=== PATIENT | male | born 1975 | race Caucasian/White ===

== ENCOUNTER 2019-05-13 11:25 | Emergency (ER) | payer MEDICAID, SELFPAY ==
[2019-05-13] VITALS (9 sets, daily range): BP systolic 106–130; BP diastolic 74–75; PULSE 40–53; RESP 11–18; TEMP 36.5; O2SAT 97–100
--- NOTE | 2019-05-13 11:37 | DI.RAD_ITS ---
EXAM: XR ANKLE LT COMPLETE AND RT ANKLE INDICATION: fall from height. COMPARISON: LEFT ANKLE COMPLETE from 03/24/2012 XR ANKLE RT COMPLETE from 05/13/2019 TECHNIQUE: 2D digital imaging was performed. FINDINGS: Five views of the left ankle and three views of the right ankle were obtained. On the right, the ankle mortise appears well maintained and the tibia, fibula and talus appear intact . There is a comminuted calcaneal fracture with moderate displacement. On the left, there is a markedly displaced, comminuted tibiofibular fracture which is a trimalleolar fracture. No talar or calcaneal fracture identified.
--- NOTE | 2019-05-13 11:37 | W.ED.GENAD ---
Discharge Plan Disposition Patient Disposition: [facility] Condition: Serious Discharge Details Chief Complaint: Trauma Clinical Impression: Calcaneal fracture, Closed tibia fracture Primary Care Provider: Jamaal Lazaro ED Provider: Jenifer Blevins Home Meds and New Rx's Prescriptions: No Action No Known Home Meds RF: 0 Discharge Data Discharge Date/Time-TO BE ENTERED AT DEPARTURE: 05/13/19 14:22 Medical Decision Making Patient is a 43-year-old otherwise healthy male presenting today with chief complaint of bilateral ankle pains. He reports a prior to arrival he was working on a slippery roof when he slipped and fell off falling approximately 2 stories. Reports that he landed directly onto his feet. Denies any pain in his heels, knees, hips, pelvis, abdomen, chest, neck or back. Did not strike his head, no loss of consciousness. Denies other injury the time of the incident. Immediately noted swelling and pain to the bilateral ankles. No previous ankle fractures. He has a history of sprain to the right. On exam, patient appears uncomfortable but stable. He has obvious deformities to the ankles. Small abrasion to the anterior aspect of the left knee but no pain with palpation about this area. No palpable head or skull fracture. No evidence of trauma. No hemotympanum, no bruising by the scalp. Full range of motion of the neck with no midline tenderness. No pain palpation of the chest, lungs are clear bilaterally. Normal cardiac exam. Patient is noted to bradycardic but this is typical for the patient. Abdomen is benign, no peritoneal findings or tenderness. No CVA tenderness. Pelvis is stable with AP and lateral compression. No pain with palpation about the thighs. No saddle paresthesias. Sensation is intact in the feet he is able to wiggle his toes. Good capillary refill and 2+ distal pulses bilateral lower extremities. We will manage the patient's pain, obtain radiographic images. I do not see evidence to suggest need for CT we will continue to keep patient on a monitor perform serial evaluations. HR rate of 44, he reports he is chronically bradycardic, was 50bpm in 2015. Preliminary x-rays reviewed by myself. Patient does have a complex right tibial fracture extending into the joint line as well as a left calcaneal fracture. Consulted with orthopedics who agreed to review the images. Spoke with Dr. Hernandez who advised patient to be transferred to local trauma center. FINDINGS: Five views of the left ankle and three views of the right ankle were obtained. On the right, the ankle mortise appears well maintained and the tibia, fibula and talus appear intact. There is a comminuted calcaneal fracture with moderate displacement. On the left, there is a markedly displaced, comminuted tibiofibular fracture which is a trimalleolar fracture. No talar or calcaneal fracture identified. Consulted with Dr. Tejeda at [facility] [place]. He advised obtaining chest and pelvis x-rays, placing the patient in a cervical spine collar and sending them to their facility for 2 further evaluate. Discussed this plan with the patient who is in agreement. Patient has had a total of 2mg dilaudid, 100mcg fentanyl. FINDINGS: The heart is not enlarged. The lungs are clear. No pneumothorax or pleural effusion. IMPRESSION: No evidence of acute process. FINDINGS: A single AP view of the pelvis was obtained and shows no evidence of fracture. Care was placed in cervical precautions at the request trauma and transfer to [facility] for further evaluation and intervention the patient's bilateral lower extremities. Patient left in a comfortable state. He was with a large amount of padding prior to his departure. HPI General Mode of arrival: wheelchair. Date/Time Provider Initiated Documentation: 05/13/19 11:37. Limitations to Documentation: no limitations. Information obtained by: patient and RN notes reviewed. History of Present Illness 43 year old M presents to the emergency department with the chief complaint of bilateral ankle pain, described as severe, with intensity rated at 10. Quality is described as aching, and is localized to the left, right and lower extremity. Patient reports no radiation. Patient started experiencing this minute(s) (30) and it has been constant. Immobilization improves symptom(s), Movement worsens symptoms . Patient notes rash (ecchymosis bilateral ankles); denies chest pain, cough, diaphoresis, fever/chills, headaches, loss of appetite, nausea/vomiting, seizure, shortness of breath and syncope. Patient did receive the following treatments prior to arrival, none Related Data Home Medications Medication Instructions Recorded Confirmed Unknown [No Known Home Meds] 05/13/19 05/13/19 Allergies Allergy/AdvReac Type Severity Reaction Status Date / Time No Known Allergies Allergy Unverified 02/18/15 13:17 General Stated Complaint: Trauma CARMEN: 2 Review of Systems Constitutional Constitutional: Reports as per HPI, Denies chills, Denies fatigue, Denies fever(s), Denies headache(s) and Denies weakness Eyes Eyes: Reports as per HPI, Denies blurry vision, Denies change in vision and Denies loss of vision ENT Ears, Nose, Mouth, and Throat: Denies abnormal hearing and Denies headache(s) Cardiovascular Cardiovascular: Reports as per HPI, Denies chest pain and Denies dyspnea Respiratory Respiratory: Reports as per HPI, Denies cough, Denies pain on inspiration, Denies pain with cough and Denies dyspnea Gastrointestinal Gastrointestinal: Reports as per HPI, Denies abdominal pain, Denies nausea and Denies vomiting Genitourinary Genitourinary: Reports as per HPI and Denies urinary incontinence Musculoskeletal Musculoskeletal: Reports as per HPI Integumentary/Breasts Skin/Breast: Reports as per HPI and Denies rash Neurologic Neurologic: Reports as per HPI, Denies abnormal hearing, Denies abnormal movements, Denies abnormal speech, Denies headache(s), Denies lack of coordination, Denies focal weakness, Denies loss of vision, Denies seizure-like activity, Denies paresthesias and Denies weakness Endocrine Endocrine: Denies fatigue [facility] Social History Smoking/Tobacco Use Status: Current every day Drug use: Never Substance use type: does not use Current gender identity: male Do you feel safe at home: Yes Do you feel safe in your relationship?: Yes Exam Const General: cooperative, healthy appearing, comfortable, no acute distress, well developed and well groomed Nutritional Appearance: average body habitus and well nourished Orientation: alert, awake and oriented x3 HENMT Head: normal to inspection, no palpable skull fracture, normocephalic and atraumatic Ears: hearing grossly normal bilaterally, external ears normal and TM's normal bilaterally General nose exam: external nose normal Mouth: oral mucosae normal, lip normal and tongue normal Throat: posterior oropharynx normal Eyes General: appearance normal, both eyes and all related structures Visual Stroud: normal visual stroud by confrontation Alignment and Position: alignment normal Periorbital: periorbital findings normal Eyelids: eyelids normal Conjunctivae: conjunctivae normal Pupils: PERRL EOM: EOM intact bilaterally Neck Neck: normal visual inspection, full ROM, no lymphadenopathy, no meningeal signs, trachea midline and supple Chest Chest: normal inspection of the chest, normal palpation of entire chest wall, no crepitus and no localized rib tenderness Resp Effort & Inspection: normal respiratory effort, able to speak in complete sentences and no respiratory distress Auscultation: clear to auscultation bilaterally, no rales, no rhonchi and no wheezes Cardio Rate: regular rate Rhythm: regular rhythm Heart Sounds: S1 normal and S2 normal GI Inspection: normal to inspection, no abdominal wall ecchymosis, no edema and non-distended Palpation: soft, no hepatosplenomegaly, not firm, no guarding, no pulsatile masses, not rigid and nontender Auscultation: normal bowel sounds Back/Spine/Pelvis Back: no CVA tenderness Cervical Spine: normal cervical lordosis and cervical ROM normal Thoracic/Lumbar Spine: thoracic and lumbar spine normal to inspection, thoraco-lumbar ROM normal, No thoraco-lumbar ROM limited, No thoraco-lumbar spasm and No thoracic spinal tenderness Pelvis: no pain with anterior-posterior compression and no pain with lateral compression Skin General skin exam: ecchymosis (BLE) Neuro General: alert, awake, oriented x3, gait normal, tone normal and moves all extremities Cranial Nerves: CN's II-XI intact bilaterally Cognition: normal cognition Speech: speech normal Gait: normal gait Motor: muscle tone normal throughout and strength 5/5 throughout Sensory Exam: no sensory deficits noted (no saddle paresthesias) Extrem General: normal to inspection, full ROM, normal capillary refill, no pedal edema and no calf tenderness Right lower extremity: normal capillary refill; abnormal to inspection (deformity medial malleolus with ecchymosis extending into the headl) and no edema Left lower extremity: normal capillary refill (swelling to medial ankle); abnormal to inspection and no edema Psych Appearance: grossly normal and well kempt Mental Status: mental status grossly normal Speech and Movement: speech and movement normal Course Vital Signs Vital signs: Vital Signs Temperature 36.5 C 05/13/19 11:29 Pulse 44 L 05/13/19 11:29 Respiratory Rate 16 05/13/19 11:29 Blood Pressure 106/74 05/13/19 11:29 Pulse Oximetry 99 10/04/19 11:29 Temperature 36.5 C 05/13/19 11:29 Temperature Source Tympanic 05/13/19 11:29 Pulse 44 L 05/13/19 11:29 Respiratory Rate 16 05/13/19 11:29 Blood Pressure 106/74 05/13/19 11:29 Blood Pressure Position Supine 05/13/19 11:29 Pulse Oximetry 99 05/13/19 11:29 Oxygen Delivery Method Room Air 05/13/19 11:29 Oxygen Flow Rate 0 05/13/19 11:29 Pain Level 10 05/13/19 11:29 Procedures Orthopedic Splinting/Casting Injury #1: Side: left Lower Extremity Injury Location: ankle Lower Extremity Immobilizer: posterior splint Injury #2: Side: right Lower Extremity Injury Location: ankle Lower Extremity Immobilizer: posterior splint
[2019-05-13] MEDS: fentaNYL 100 MCG/2 ML VIAL IVP (11:47)
[2019-05-13] MEDS: Lactated Ringers 1,000 ML 1000 ML IV (11:47)
[2019-05-13] MEDS: HYDROmorphone 2 MG/ML VIAL 1 MG IVP ×2 (12:32→13:35)
--- NOTE | 2019-05-13 12:33 | NUR.NOTE ---
pr medicated as per mdo for pain Nursing Note:
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
--- NOTE | 2019-05-13 13:35 | NUR.NOTE ---
pa at bedside placing splints to ble Nursing Note:
== END 2019-05-13 14:22 | disposition short-term general hospital (02) ==
LOC: ER 13:10
PROVIDERS: Emergency Provider Physician Assistant; PCP Family Medicine
DX: S92.001A Unspecified fracture of right calcaneus, initial encounter for closed fracture (principal); S82.851A Displaced trimalleolar fracture of right lower leg, initial encounter for closed fracture; W13.2XXA Fall from, out of or through roof, initial encounter
CPT/HCPCS: 96361; 96374; 96375; 96376; 99285; 71046; 72170; 73610; 99284; J3010; L0172

== ENCOUNTER 2021-01-19 19:33 | Emergency (ER) | payer MEDICAID, SELFPAY ==
[2021-01-19] VITALS (13 sets, daily range): BP systolic 123–148; BP diastolic 59–105; PULSE 60–85; RESP 12–24; TEMP 36.7; O2SAT 94–100
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
[2021-01-19] MEDS: Ondansetron 4 MG/2 ML VIAL IVP (19:50)
[2021-01-19 19:52] LABS: Abs Immature Grans 0.01 10^3/uL (0.0-0.06); Absolute Basophil Count 0.04 10^3/uL (0.0-0.2); Absolute Eosinophil Count 0.08 10^3/uL (0.0-0.7); Absolute Lymphocyte Count 1.96 10^3/uL (1.2-3.4); Absolute Monocyte Count 0.42 10^3/uL (0.1-0.8); Absolute Neutrophil Count 5.64 10^3/uL (1.2-6.7); Basophils % 0.5; HCT 43.1 % (40.0-50.0); HGB 14.4 g/dL (13.5-17.5); Immature Grans % 0.1; MCH 29.9 pg (27.0-33.0); MCHC 33.4 % (32.0-36.0); MCV 89.6 fL (80-95); MPV 9.9 fL (8.0-11.0); Monocytes % 5.2; Neutrophils % 69.2; Nucleated RBC 0 %; Platelet Count 242 10^3/uL (130-400); RBC 4.81 10^6/uL (4.36-5.78); RDW-SD 39.8 fL; WBC 8.15 10^3/uL (4.4-10.8)
[2021-01-19] MEDS: Omnipaque 350 MG/ML 100 ML BTL IJ (19:53)
[2021-01-19] MEDS: Normal Saline - Diluent 50 ML VIAL IV (19:54)
[2021-01-19 20:05] LABS: ETHANOL BLOOD 49.7 mg/dL (<3); Lipase 55 U/L (73-393)
[2021-01-19 20:08] LABS: ALT 53 U/L (16-63); AST 33 U/L (15-37); Albumin 3.9 g/dL (3.4-5.0); Alkaline Phosphatase 61 U/L (46-116); Anion Gap 12.8 mmol/L (3-11); BUN 14 mg/dL (7-18); Bilirubin, Total 0.4 mg/dL (0.2-1.0); CO2 24.2 mmol/L (21.0-32.0); CREATININE 1.2 mg/dL (0.70-1.30); Calcium 8.8 mg/dL (8.5-10.1); Chloride 105 mmol/L (98-107); Glucose 109 mg/dL (74-106); Potassium 3.8 mmol/L (3.5-5.1); Sodium 142 mmol/L (136-145)
[2021-01-19] MEDS: Lidocaine/Epinephri/Tetracaine Topical Gel 3 ML TP (20:15)
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
[2021-01-19 20:38] LABS: Bilirubin Negative (Negative); Blood Negative (Negative); Clarity Clear (Clear); Glucose Negative (Negative); Ketones Negative (Negative); Leukocyte Esterase Negative (Negative); Nitrite Negative (Negative); Urobilinogen 0.2 EU/dL (Up TO 0.2); pH 5.5 (5-8)
[2021-01-19 20:58] LABS: *AMPHETAMINES SCREEN URINE Negative (Negative); *BARBITURATES SCREEN URINE Negative (Negative); *BENZODIAZEPINES SCREEN URINE Negative (Negative); Cannabinoids THC Positive (Negative); Cocaine Screen,Urine Negative (Negative); METHADONE URINE SCREEN Negative (Negative); OPIATES URINE SCREEN Negative (Negative)
[2021-01-19 21:23] LABS: Tricyclic Antidepressants Negative (Negative)
== END 2021-01-19 21:00 | disposition home or self-care (01) ==
LOC: ER 20:46
PROVIDERS: Emergency Provider Registered Nurse Emergency; PCP Family Medicine
DX: S01.01XA Laceration without foreign body of scalp, initial encounter (principal); S06.0X0A Concussion without loss of consciousness, initial encounter; V58.5XXA Driver of pick-up truck or van injured in noncollision transport accident in traffic accident, initial encounter; F10.10 Alcohol abuse, uncomplicated; Y90.2 Blood alcohol level of 40-59 mg/100 ml
CPT/HCPCS: 36415; 74177; 80053; 80307; 83690; 90471; 96374; 99285; 70450; 71260; 72125; 80320; 81003; 85025; 99284; J2405; J3490

== ENCOUNTER 2021-12-14 11:59 | Emergency (ER) | payer MEDICAID, SELFPAY ==
[2021-12-14 12:06] VITALS: BP 127/77; PULSE 44; RESP 16; O2SAT 98
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
[2021-12-14] MEDS: HYDROcodone 5/Acetaminophen 325 TAB PO (12:18)
[2021-12-14 12:20] VITALS: BP 131/92; PULSE 50; RESP 16; O2SAT 97
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
[2021-12-14 14:07] VITALS: BP 138/86; PULSE 80; RESP 18; TEMP 36.9; O2SAT 100
--- NOTE | 2021-12-14 15:46 | NUR.NOTE ---
Dr. Suazo requested orthopaedic consultation, I faxed the request. CLB
== END 2021-12-14 14:38 | disposition home or self-care (01) ==
PROVIDERS: Emergency Provider Emergency Medicine; PCP Family Medicine
DX: S42.022A Displaced fracture of shaft of left clavicle, initial encounter for closed fracture (principal); V29.9XXA Motorcycle rider (driver) (passenger) injured in unspecified traffic accident, initial encounter; R07.9 Chest pain, unspecified
CPT/HCPCS: 99284; 71045; 73000; 99283

== ENCOUNTER 2021-12-17 08:21 | Outpatient (CLI) | payer MEDICAID, SELFPAY ==
[2021-12-17 11:33] LABS: Source Nasal/Nares
[2021-12-17 14:08] LABS: COVID-19 PCR Negative (Negative)
== END 2021-12-17 08:22 | disposition home or self-care (01) ==
PROVIDERS: PCP Family Medicine; Referring Provider Family Medicine; Visit Provider Student in an Organized Health Care Education/Training Program
DX: Z20.822 Contact with and (suspected) exposure to COVID-19 (principal); Z01.818 Encounter for other preprocedural examination
CPT/HCPCS: 87635

== ENCOUNTER 2021-12-20 07:30 | Day surgery (SDC) | payer MEDICAID, SELFPAY ==
[2021-12-20] VITALS (9 sets, daily range): BP systolic 107–130; BP diastolic 53–92; PULSE 47–61; RESP 12–19; TEMP 36.1–37; O2SAT 94–100; BMI 23.6
[2021-12-20] MEDS: Lactated Ringers 1,000 ML 30 ML IV (08:10)
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
--- NOTE | 2021-12-20 08:57 | W.ANESNERVE ---
Nerve Block Single Injection Procedure Date and Time Date Performed: 12/20/21 Procedure Start: 08:28 Location Where Procedure Performed Procedure Location: Day Surgery Unit Reason Performed: Postoperative Analgesia Requesting Provider: Brian Burnett Timeout Performed Timeout Performed: Yes Monitoring Used ECG, Blood Pressure and SpO2 Sterility Sterility: Hand Hygiene, Surgical Cap, Surgical Mask, Sterile Gloves, Sterile Drape/Sheet, Eye Protection and Chlorhexidine Sedation Given During Procedure Sedation Given (Indicate Dose Given): Versed IV Dose:: 2 mL Patient Mental Status Patient Mental Status: Sedate with meaningful communication Nerve Block 1st Nerve Block: Laterality: Left Block Type: Interscalene Needle / Catheter Used: 100mm SonoPlex II Local Anesthetic Bolus (Indicate Dose Given): Bupivacaine 0.5% Dose:: 15 mL Additives (Indicate Dose Given): Precedex Dose:: 75 mcg Ultrasound: Sterile probe cover and gel used Ultrasound Image Saved?: Yes Nerve Stimulator: Not Used Paresthesia: None Procedure Tolerated: No Complications and Patient tolerated well Procedure Outcome: Successful Performed By: Diann Gaona Supervised By: Ailyn Mansfield
[2021-12-20] MEDS: ceFAZolin 2 GM/50 ML BAG IVPB (10:53)
--- NOTE | 2021-12-20 11:29 | DI.RAD_ITS ---
Exam(s) XR CLAVICLE LT EXAM: XR CLAVICLE LT CLINICAL HISTORY: LEFT CLAVICLE FRACTURE. TECHNIQUE: 2D digital imaging was performed. COMPARISON: CR XR CLAVICLE LT from 12/14/2021 FINDINGS: Fluoroscopy was provided during reduction internal fixation of comminuted midshaft displaced fracture of the left clavicle. See procedure report for details. Total fluoroscopy time 7.5 seconds Cumulative dose 0.548mGy IMPRESSION: DATA REPOSITORY: RADIATION DOSE DELIVERED:
--- NOTE | 2021-12-20 11:30 | ROE_ITS ---
Date of service: 12/20/21 Operative Note Operative Note DATE OF PROCEDURE: 12/20/21 PRE-OP DIAGNOSIS: Left displaced midshaft clavicle fracture POST-OP DIAGNOSIS: same PROCEDURE: Left clavicle ORIF, CPT #63988 SURGEON: Brian Burnett Refer to Anesthesia Record Patient was transported to: PACU Patient's condition: stable Implants: Synthes 2.7 mm, variable angle clavicle CS2 plate with 2x medial cortex screws, 2x locking medial screws, 1x lateral cortex screw, and 2x lateral locking screws; 2x 2.7 mm lag screws; and SutureTape cerclage Indications: Please see complete medical record for details. Procedure Description: In the operating room, general anesthesia was induced. The patient was positioned supine on the operating room table. All bony prominences were well- padded. Preoperative antibiotics were administered. The clavicle was prepped and draped in the usual sterile fashion. The correct patient, procedure, and side of the procedure were all verified prior to incision. The planned incision was pre-injected with 30 cc of a 50:50 mixture of bupivacaine and lidocaine containing epinephrine. The fracture site was approached raising full-thickness flaps down to bone. The incision was extended medially laterally as necessary. Care was taken to preserve soft tissue attachments. The fracture ends were identified. Bone forceps were used to prov isionally obtain reduction. The large segmental anterior piece was fixated to the lateral segment using two 2.7 mm lag screws with excellent fixation. The medial fracture was then reduced to the combined lateral pieces and held in place with bone forceps while an appropriate precontoured superior plate was applied and bent to best fit patient anatomy. It was compressed to bone with a cortex screw medially and laterally followed by an additional cortex screw most medially and then sequentially filling with 2 additional medial locking screws and 2 additional lateral locking screws. The remaining posterior inferior comminuted bone fragment was close to the reduced construct. It was brought into appropriate reduction and a suture tape Nice knot cerclage was passed about this piece and the plate secured into place. The plate and fractures were all inspected and demonstrated excellent stability and fixation strength. AP, cephalic tilt, and [id number] fluoroscopy confirmed appropriate fracture reduction and hardware placement. The wound was copiously irrigated with normal saline. Deep and subcutaneous tissue was closed in a full-thickness watertight fashion with buried interrupted 2-0 Monocryl. An additional 30 cc of bupivacaine and lidocaine containing epinephrine mixture was infiltrated about the surgical site. Subcuticular layer was closed using running 3-0 Monocryl. Skin glue was applied over the incision followed by a Mepilex Band-Aid. The patient awoke from anesthesia without complication and was transferred to the recovery room in a stable condition.
[2021-12-20] MEDS: Bupivacaine 0.5% Pres-Free W/EPI 10 ML VIAL (12:24)
--- NOTE | 2021-12-20 12:42 | W.PM.DSUDISC ---
Discharge Plan Disposition Patient Disposition: HOME Condition: Stable Discharge Details Reason For Visit: Left clavicle surgery Attending Provider: Brian Burnett Primary Care Provider: Jamaal Lazaro Home Meds and New Rx's Prescriptions: New naproxen 250 mg tablet 250 - 500 mg PO BID PRNQty: 40 0RF Rx Instructions: take with a meal aspirin 81 mg tablet,delayed release (DR/EC) 81 mg PO DAILY 14 Days Qty: 14 0RF oxycodone 5 mg tablet 5 - 10 mg PO Q4H MDD 30 mg PRN (Reason: moderate to severe pain) Qty: 18 0RF Discontinued hydrocodone-acetaminophen 5-325 mg tablet 1 tab PO Q8H PRN (Reason: pain) Qty: 7 0RF Discharge Instructions Additional Instructions: Surgery: Left clavicle ORIF Activity: Non-weightbearing left upper extremity. Use sling when up and about or out of the home for 6 weeks. Gentle shoulder range of motion okay. Please bend and straighten your elbow and move your wrist and fingers every day to prevent stiffness and increase circulation A physical therapy prescription will be provided separately in the office at follow-up if needed. Prescriptions: Aspirin 81 mg take 1 daily to prevent a blood clot for 2 weeks Naproxen 250 mg take 1-2 every 12 hours with a meal as needed for moderate pain Oxycodone 5 mg take 1-2 every 4-6 hours as needed for severe pain You may use [id number] Tylenol (acetaminophen) as needed for mild pain. These pain medications may be taken all at once or in different combinations as needed. Also, recommend Colace (docusate) as a stool softener as surgery and pain medicine cause constipation. Dressings: Leave dressing in place until follow-up. Keep clean and dry at all times. Follow-up: 10-[address] Burnett Let us know right away if you develop any redness, drainage, fevers, chest pain, or trouble breathing. Do not drink alcohol or drive for at least 24 hours after anesthesia. Please call the office during business hours with any questions or concerns. Referrals: Brian Burnett MD [ [facility]AFF PHYSICIAN] - Discharge Orders Discharge Orders: Discharge Order (Routine); Ordered 12/20/21 Ordered By: Brian Burnett DS: Diagnosis Discharge Diagnosis (1) Fracture of left clavicle: Status: Acute
[2021-12-20] MEDS: Ketorolac 15 MG/ML VIAL IVP (13:12)
--- NOTE | 2021-12-20 14:14 | W.ANESPOSTOP ---
Postoperative Evaluation Date, Time and Location Date Performed: 12/20/21 Time Performed: 14:14 Patient Location: Day Surgery Unit Vital Signs Most Recent Imported Vital Signs: Most Recent Vital Signs Temp Pulse Resp BP Pulse Ox 36.4 C L 53 L 16 110/92 H 98 12/20/21 14:04 12/20/21 14:04 12/20/21 14:04 12/20/21 14:04 12/20/21 14:04 Pain Score Most Recent Pain Score: Most Recent Pain Score Pain Level 0 12/20/21 14:04 Assessment Mental Status: Awake (Alert & Oriented to Patient Baseline) Airway and Respiratory Function: Patent airway with normal (patient baseline) respiratory exam Cardiovascular Function: Hemodynamically Stable Hydration Status: Adequately Hydrated Nausea & Vomiting: No Nausea or Vomiting Pain: Pt. Denies Any Pain Peripheral Nerve Block: Regional nerve block not resolved at time of post operative discharge
== END 2021-12-20 14:30 | disposition home or self-care (01) ==
PROVIDERS: PCP Family Medicine; Visit Provider Student in an Organized Health Care Education/Training Program
PROC: (CPT 23515; principal; 2021-12-20 10:30)
DX: S42.022A Displaced fracture of shaft of left clavicle, initial encounter for closed fracture (principal); V89.2XXA Person injured in unspecified motor-vehicle accident, traffic, initial encounter
CPT/HCPCS: 23515; 73000; J0690; J1100; J1885; J2250; J2370; J2405

== ENCOUNTER 2021-12-31 11:55 | Outpatient (CLI) | payer MEDICAID, SELFPAY ==
--- NOTE | 2021-12-31 11:45 | DI.RAD_ITS ---
Exam(s) XR CLAVICLE LT EXAM: XR CLAVICLE LT CLINICAL HISTORY: LEFT CLAVICLE FX F/U TECHNIQUE: COMPARISON: CR XR CLAVICLE LT from 12/14/2021 XA XR CLAVICLE LT from 12/20/2021 FINDINGS: Two views were obtained and show midclavicular fracture with plate and screw fixation in place. Alig nment appears unchanged comparison with intraoperative films of December 20. IMPRESSION: RADIATION DOSE DELIVERED: Total DLP
== END 2021-12-31 11:56 | disposition home or self-care (01) ==
LOC: DIORS 11:56
PROVIDERS: PCP Family Medicine; Referring Provider Family Medicine; Visit Provider Student in an Organized Health Care Education/Training Program
DX: S42.022D Displaced fracture of shaft of left clavicle, subsequent encounter for fracture with routine healing (principal); V89.2XXD Person injured in unspecified motor-vehicle accident, traffic, subsequent encounter
CPT/HCPCS: 73000

== ENCOUNTER 2022-01-06 10:00 | Emergency (ER) | payer MEDICAID, SELFPAY ==
[2022-01-06 10:02] VITALS: BP 132/81; PULSE 58; RESP 16; TEMP 36.6; O2SAT 98
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
[2022-01-06 11:16] LABS: D-Dimer 276 ng/mlFEU (<500)
--- NOTE | 2022-01-06 11:37 | NUR.NOTE ---
Nursing Note: Faxed to [facility] a request for LUE US for DVT to be done January 07 and follow up in ED. Trina Mina
--- NOTE | 2022-01-07 | DI.US_ITS ---
Exam(s) US UPPER EXTREMITY VENOUS LT EXAM: US UPPER EXTREMITY VENOUS LT CLINICAL HISTORY: LT ARM PAIN, S/P SURGERY ON LT CLAVICLE, ? DVT TECHNIQUE: GRAYSCALE, COLOR, DOPPLER IMAGING OF THE VENOUS SYSTEM OF THE UPPER EXTREMITY-BILATERAL COMPARISON: None FINDINGS: Basilic vein: Patent. Normal color-flow and normal compression and augmentation properties. Brachial vein(s):Patent. Normal color flow. Normal compression and augmentation properties. Cephalic vein:Patent. Normal color flow. Normal compression and augmentation properties. Axillary vein: Patent. Normal color flow. Normal compression and augmentation properties. Visualized subclavian vein: Patent. No obvious intraluminal thrombus. IMPRESSION: 1. No evidence of venous thrombosis in the left upper extremity. 2. DATA REPOSITORY:
== END 2022-01-06 11:31 | disposition home or self-care (01) ==
PROVIDERS: Emergency Provider Physician Assistant; PCP Family Medicine
DX: M79.622 Pain in left upper arm (principal)
CPT/HCPCS: 36415; 99284; 85379; 99283

== ENCOUNTER 2022-01-07 09:58 | Emergency (ER) | payer MEDICAID, SELFPAY ==
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
[2022-01-07 10:15] VITALS: BP 138/79; PULSE 66; RESP 18; O2SAT 99
== END 2022-01-07 10:22 | disposition home or self-care (01) ==
PROVIDERS: Emergency Provider Emergency Medicine; PCP Family Medicine
DX: M25.512 Pain in left shoulder (principal)
CPT/HCPCS: 93971

== ENCOUNTER → 2022-01-07 13:05 | Outpatient (CLI) | payer MEDICAID, SELFPAY | PROVIDERS: PCP Family Medicine; Visit Provider Physician Assistant ==

== ENCOUNTER 2022-12-03 07:29 | Day surgery (SDC) | payer MEDICAID, SELFPAY ==
[2022-12-03] VITALS (9 sets, daily range): BP systolic 88–125; BP diastolic 34–85; PULSE 52–64; RESP 13–18; TEMP 36.3–36.7; O2SAT 94–97; BMI 21.5
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
--- NOTE | 2022-12-03 06:35 | W.PM.OP ---
Date of service: 12/03/22 Time of Service: 09:37 Operative Note Operative Note DATE OF PROCEDURE: 12/03/22 PRE-OP DIAGNOSIS: right inguinal hernia POST-OP DIAGNOSIS: other (right direct and indirect inguinal hernia) PROCEDURE: Right inguinal hernia repair with mesh SURGEON: Sandra Verduzco GRINDER AND PLATER: Jie Peres ANESTHESIA TYPE: Local By Surgeon, General:No Airway and Primary Nerve Block Refer to Anesthesia Record PATHOLOGY: none sent COMPLICATIONS: None Patient was transported to: PACU Patient's condition: stable Implants: PER FIX Light Plug: [id number] LOT- [id number] 2027-06-06 Indications: Mr Hoffman is a pleasant 47-year-old gentleman with a right inguinal hernia.? It has been getting larger over the last 2 years and now is more uncomfortable when he works.? He does a lot of heavy lifting for his work.? He had a left inguinal hernia repair about 5 years ago and had no complications with the repair itself or with the anesthesia.? We reviewed the risks, benefits and complications.? Risks, benefits and complications have been reviewed. Complications include but are not limited to bleeding, infection, injury to vas, vessels and nerves, injury to bowel, recurrence (3-5%), chronic pain and adverse reaction to medications. Questions were entertained and answered to their satisfaction.? The patient understood the risks, benefits and complications as described and he wished to proceed. Findings: Direct and indirect hernia Moderate sized hernia sac Cord lipoma Procedure Description: After informed consent was obtained the patient was taken to the operating room and placed in a supine position. Monitors and SCDs were applied and a timeout was done. The patient's name, date of , procedure type, procedure site, allergies to medications, preoperative antibiotic, and DVT prophylaxis were all reviewed. Fire risk was assessed. Next anesthesia did a tap block on the right side under ultrasound guidance. Please see their separate dictation. Once anesthesia was done the abdomen was prepped and draped in a sterile surgical fashion. 0.5% Marcaine was injected into the dermis in the right lower quadrant. An incision was made with a 10 blade in the right lower quadrant. Dissection was done with cautery through the subcutaneous tissues and Lucio's fascia down to the external oblique fascia. The external ring was identified and the external oblique fascia was opened sharply through the external ring. The cut fascia was grasped with hemostats the cord structures were identified and a Villalba drain was placed around them. The ilioinguinal nerve was identified and cut. The cremasteric muscle was dissected away from the cord structures using both cautery and blunt dissection. A hernia sac was identified and removed from the cord structures using blunt dissection. The hernia sac was suture ligated and amputated. The remnant was pushed back into the peritoneum. There was a moderate sized cord lipoma which was also removed from the cord structures. An Large plug was placed into the indirect defect and secured with 2-0 proline. A flat piece of mesh was then attached to the lacunar ligament using a 2-0 Prolene double armed suture. The mesh was secured laterally and medially with a 2-0 Prolene, with a running suture. The tails of the mesh were wrapped around the cord structures effectively cinching down the internal ring. Once the mesh was secured the tissues were irrigated with some normal saline. No bleeding was identified. The external oblique fascia was reapproximated using 2-0 Vicryl running suture. The Lucio's fascia was reapproximated using interrupted 3-0 Vicryl. The dermis was reapproximated with a running 4-0 Vicryl. The skin was cleaned and dried and dermabond was applied. The patient was woken up and taken back to recovery in stable condition. There were no immediate complications. Sponge, instrument and needle counts were correct at the end of the case x2.
--- NOTE | 2022-12-03 06:37 | W.PM.DSUDISC ---
Date of service: 12/03/22 Time of Service: 10:53 Discharge Plan Disposition Patient Disposition: Home Condition: Stable Discharge Details Reason For Visit: RIH repair Attending Provider: Sandra Verduzco Primary Care Provider: Jamaal Lazaro Home Meds and New Rx's Prescriptions: No Action No Known Home Meds Discharge Instructions Instructions: Inguinal Hernia Repair (DC) Additional Instructions: Activity at Home after surgery: 1. Make sure you walk outside at least 4 times per day 2. You should be able to climb a flight of stairs 3. No driving while in pain or taking pain medications 4. No strenuous activity or heavy lifting for 4 weeks (open surgery) Diet, Nutrition, & wound healin. Avoid alcohol until after you are recovered from your surgery 2. Make sure to eat plenty of lean protein (meat, fish, eggs, cottage cheese, beans) 3. Eat a variety of fruits and vegetables. Eat plenty of high fiber foods to avoid constipation. 4. Drink plenty of liquids to stay hydrated and avoid constipation Pain Medications: 1. Tylenol 650mg every 6 hours as needed and Ibuprofen 600 mg every 6 hours as needed. You may alternate between the 2 medications every 3 hours 2. If a narcotic has been prescribed take as directed only for breakthrough pain For Constipation: 1. Take Milk of Magnesia or MiraLax as needed for constipation Other: 1. You may shower daily. Do not scrub the incisions 2. Do not soak the incisions for 1 week 3. You may alternate ice and heat as needed for pain and swelling Wound Care: 1. Keep the incisions clean and dry Please call our office if you develop: 1. Fevers >101.5 2. Nausea or Vomiting 3. Worsening pain 4. Redness and thick discharge from the wounds If after hours please call the Hospital at and ask to speak to the on-call surgeon Referrals: Sandra Verduzco MD [ [facility] STAFF PHYSICIAN] - 12/15/22 8:00 am Activity:: see above Remove Dressings/Wound Care:: Do Not Remove Shower/Bathe:: 24 hours Diet:: As Tolerated Discharge Orders Discharge Orders: Discharge Order (Routine); Ordered 12/03/22 Ordered By: Sandra Verduzco
--- NOTE | 2022-12-03 06:39 | PGE_ITS ---
Date of Service Date of service: 12/03/22 Time of Service: 08:07 Assessment and Plan Assessment and plan (1) Right inguinal hernia: Status: Acute Assessment and plan: Mr Hoffman is a pleasant 47-year-old gentleman with a right inguinal hernia.? It has been getting larger over the last 2 years and now is more uncomfortable when he works.? He does a lot of heavy lifting for his work.? He had a left inguinal hernia repair about 5 years ago and had no complications with the repair itself or with the anesthesia.? We again reviewed the risks, benefits and complications.? Complications include but are not limited to bleeding, infection, injury to vas, vessels and nerves, injury to bowel, recurrence (3- 5%), chronic pain and adverse reaction to medications. Questions were entertained and answered to their satisfaction.? The patient understood the risks, benefits and complications as described and he wished to proceed. Proceed with RIH repair with mesh and TAP block for post op pain control Subjective Subjective Interval history since last seen: Benjamin is here today to have his right inguinal hernia repaired. He has not had any new issues. He does not have any questions today about the repair over the possible complications. Exam Const General: cooperative, comfortable and no acute distress Orientation: alert and oriented x3 HENMT Head: normocephalic and atraumatic GI Inspection: normal to inspection Palpation: soft, hernia (Right inguinal) and nontender Time Spent with Patient Time Spent with Patient: <25 minutes Time was spent: counseling the patient
[2022-12-03] MEDS: Celecoxib 200 MG CAP PO (07:52)
[2022-12-03] MEDS: Gabapentin 300 MG CAP 600 MG PO (07:53)
[2022-12-03] MEDS: Acetaminophen 500 MG TAB 1000 MG PO (07:53)
[2022-12-03] MEDS: Lactated Ringers 1,000 ML 80 ML IV (08:00)
--- NOTE | 2022-12-03 08:17 | W.PM.PROGNOT ---
Date of Service Date of service: 12/03/22 Time of Service: 11:00 Assessment and Plan Assessment and plan (1) S/P right inguinal hernia repair: Assessment and plan: Benjamin is doing well after surgery. He has minimal discomfort at the surgical site. Discussed taking Tylenol and Ibuprofen for pain Discussed lifting limitations and Sx/Sx of infection Patient is OK to be discharged. (2) Right inguinal hernia: Status: Acute Subjective Subjective Interval history since last seen: I saw Benjamin in [facility] after his Hernia Surgery. He is doing well. He has minimal discomfort at the incisions site. He has no N/V. Discussed findings with him Reviewed lifting limitations and Sx/Sx of infection Exam GI Inspection: incision (c/d/i) Objective Last Vital Signs Temp 97.3 F L 12/03/22 07:42 Pulse 54 L 12/03/22 07:42 Resp 16 12/03/22 07:42 BP 125/85 12/03/22 07:42 Pulse Ox 97 12/03/22 07:42 Time Spent with Patient Time Spent with Patient: <25 minutes Time was spent: counseling the patient
--- NOTE | 2022-12-03 08:23 | W.ANESNERVE ---
Nerve Block Single Injection Procedure Date and Time Date Performed: 12/03/22 Procedure Start: 08:35 Location Where Procedure Performed Procedure Location: Operating Room Procedure Stop: 08:41 Reason Performed: Postoperative Analgesia Requesting Provider: Sandra Verduzco Timeout Performed Timeout Performed: Yes Monitoring Used ECG, Blood Pressure, SpO2 and ETCO2 Sterility Sterility: Hand Hygiene, Surgical Cap, Surgical Mask and Chlorhexidine Sedation Given During Procedure Sedation Given (Indicate Dose Given): No Sedation given Patient Mental Status Patient Mental Status: Performed under general anesthesia Nerve Block 1st Nerve Block: Laterality: Right Block Type: TAP Unilateral Ultrasound Image Saved?: Yes Needle / Catheter Used: 100mm SonoPlex II Local Anesthetic Bolus (Indicate Dose Given): Bupivacaine 0.375% Dose:: 20 mL Additives (Indicate Dose Given): Epinephrine to make 1:400,000 (2.5mcg/ml) Dose:: 50 mcg and Precedex Dose:: 50 mcg Ultrasound: Sterile probe cover and gel used Nerve Stimulator: Not Used Paresthesia: None Procedure Tolerated: No Complications Procedure Outcome: Successful Performed By: Maikel Cazares
[2022-12-03] MEDS: ceFAZolin 2 GM/50 ML BAG IVPB (08:29)
[2022-12-03] MEDS: Bupivacaine 0.25% Pres-Free 30 ML VIAL (09:31)
[2022-12-03] MEDS: ePHEDrine 25 MG/5 ML Syringe IVP (10:04)
--- NOTE | 2022-12-03 10:54 | W.ANESPOSTOP ---
Postoperative Evaluation Date, Time and Location Date Performed: 12/03/22 Time Performed: 10:55 Patient Location: Day Surgery Unit Vital Signs Most Recent Imported Vital Signs: Most Recent Vital Signs Temp Pulse Resp BP Pulse Ox 36.6 C 52 L 13 107/57 L 94 12/03/22 10:38 12/03/22 10:38 12/03/22 10:38 12/03/22 10:38 12/03/22 10:38 Pain Score Most Recent Pain Score: Most Recent Pain Score Pain Level 0 12/03/22 10:38 Assessment Mental Status: Awake (Alert & Oriented to Patient Baseline) Airway and Respiratory Function: Patent airway with normal (patient baseline) respiratory exam Cardiovascular Function: Hemodynamically Stable Hydration Status: Adequately Hydrated Nausea & Vomiting: No Nausea or Vomiting Pain: Pain is tolerable per patient Peripheral Nerve Block: Regional nerve block not resolved at time of post operative discharge
[2022-12-03] MEDS: traMADol 50 MG TAB PO (11:38)
== END 2022-12-03 11:54 | disposition home or self-care (01) ==
PROVIDERS: PCP Family Medicine; Visit Provider Surgery
PROC: (CPT 49505; principal; 2022-12-03 09:00)
DX: K40.90 Unilateral inguinal hernia, without obstruction or gangrene, not specified as recurrent (principal)
CPT/HCPCS: 49505; 76942; C1781; J0171; J0690; J1100; J1885; J2405; J3475